=== PATIENT | male | born 1990 | race Two or more races ===

== ENCOUNTER 2023-12-14 00:49 | Inpatient (IN) | payer OTHER ==
[2023-12-14] MEDS ORDERED: NALOXONE HCL 0.4 MG/ML VIAL IM PRN (01:58)
[2023-12-14] MEDS ORDERED: ONDANSETRON *ODT* 4 MG TABLET SL PRN (01:58)
[2023-12-14] MEDS ORDERED: LOPERAMIDE HCL 2 MG CAPSULE PO PRN (01:58)
[2023-12-14] MEDS ORDERED: BENZOCAINE/MENTHOL (CHLORASEPTIC ) LOZENGE MM PRN (01:58)
[2023-12-14] MEDS ORDERED: NALOXONE (NARCAN) HCL 4 MG/0.1 ML SPRAY NS PRN (01:58)
[2023-12-14] MEDS ORDERED: BISMUTH SUBSALICYLATE 524 MG/30 ML PO PRN (01:58)
[2023-12-14] MEDS ORDERED: MAGNESIUM HYDROX 2400MG/30ML ORAL SUSPENSION 30 ML CUP PO PRN (01:58)
[2023-12-14] MEDS ORDERED: ACETAMINOPHEN 325 MG TABLET (FP) PO PRN (01:58)
[2023-12-14] MEDS ORDERED: POLYETHYLENE GLYCOL (HEALTHYLAX) 3350 17 GM PACKET PO PRN (01:58)
[2023-12-14] MEDS ORDERED: guaiFENesin 600 MG TABLET.ER (FP) PO PRN (01:58)
[2023-12-14] MEDS ORDERED: IBUPROFEN 400 MG TABLET (FP) PO PRN (01:58)
[2023-12-14] MEDS ORDERED: BENZONATATE 200 MG CAPSULE PO PRN (01:58)
[2023-12-14] MEDS ORDERED: MAG HYDROX/AL HYDROX/SIMETH 30 ML UNIT-DOSE CUP PO PRN (01:58)
[2023-12-14] MEDS ORDERED: DICYCLOMINE HCL 10 MG CAPSULE PO PRN (01:58)
[2023-12-14 02:51] VITALS: BMI 29.1
[2023-12-14] MEDS: methaDONE HCL 10 MG TABLET (FOR DETOX USE ONLY) PO ONE (03:02)
[2023-12-14] MEDS: NICOTINE 21 MG/24 HOURS TOPICAL PATCH TD SCH (09:33)
[2023-12-14] MEDS: PRENATAL VITAMINS W/ FOLIC ACID TABLET (FP) PO SCH (09:33)
[2023-12-14] MEDS: methaDONE HCL 10 MG TABLET PO ONE ×2 (15:16→15:22)
[2023-12-14] MEDS ORDERED: methaDONE HCL 10 MG TABLET PO PRN (17:00)
[2023-12-14] MEDS: cloNIDine HCL 0.1 MG TABLET PO SCH (17:15)
[2023-12-14] MEDS: THIAMINE 100 MG TABLET PO SCH (22:32)
[2023-12-14] MEDS: MELATONIN 5 MG TABLETS PO SCH (22:32)
[2023-12-15] MEDS: methaDONE 40 MG, methaDONE 10 MG PO ONE (09:35)
[2023-12-15] MEDS: hydrOXYzine PAMOATE 25 MG CAPSULE (FP) PO PRN (22:08)
[2023-12-16] MEDS ORDERED: cloNIDine HCL 0.1 MG TABLET PO PRN
[2023-12-16] MEDS ORDERED: methaDONE HCL 10 MG TABLET (FOR DETOX USE ONLY) PO ONE (10:00)
[2023-12-16] MEDS: methaDONE 40 MG, methaDONE 20 MG PO ONE (10:04)
[2023-12-16 11:51] LABS: HEMATOCRIT 36.9 % (35.4-49); HEMOGLOBIN 12.5 GM/dL (11.7-16.9); MCH 30.6 pg (25.7-33.7); MCHC 33.8 g/dl (32.0-35.9); MEAN CELL VOLUME 90.6 fl (80-96); MEAN PLT VOLUME 7.7 fl (7.5-11.1); PLATELET COUNT 273 10^3/uL (134-434); RBC 4.07 M/mm3 (4.00-5.60); RDW 15.4 % (11.9-15.9); WHITE BLOOD COUNT 6.4 K/mm3 (4.0-10.0)
[2023-12-16 11:55] LABS: POTASSIUM 4.2 mmol/L (3.5-5.1)
[2023-12-16 12:03] LABS: ALBUMIN 3.6 g/dl (3.4-5.0); BLOOD UREA NITROGEN 11.5 mg/dL (7-18)
[2023-12-16 12:04] LABS: BILIRUBIN,TOTAL 0.4 mg/dL (0.2-1); TOT PROT 6.8 g/dl (6.4-8.2)
[2023-12-16 12:06] LABS: CREATININE 0.8 mg/dL (0.55-1.3)
[2023-12-16] MEDS: cloNIDine HCL 0.1 MG TABLET PO PRN (13:05)
[2023-12-16] MEDS ORDERED: SIMETHICONE 80 MG TAB.CHEW (FP) PO PRN (13:27)
[2023-12-16] MEDS: METHOCARBAMOL 500 MG TABLET PO PRN (22:19)
[2023-12-17] MEDS: IBUPROFEN 600 MG TABLET (FP) PO PRN (01:41)
[2023-12-17] MEDS: methaDONE 40 MG, methaDONE 30 MG PO ONE (09:58)
[2023-12-17] MEDS: NICOTINE POLACRILEX 2 MG GUM BUC PRN (16:34)
[2023-12-18] MEDS ORDERED: methaDONE HCL 10 MG TABLET (FOR DETOX USE ONLY) PO ONE (10:00)
[2023-12-18] MEDS: methaDONE HCL 40 MG DISPERSABLE TABLET PO ONE (10:08)
[2023-12-19 08:36] VITALS: BP 132/78; PULSE 61; RESP 18; TEMP 97.8
[2023-12-19] MEDS: methaDONE 80 MG, methaDONE 10 MG PO ONE (09:59)
== END 2023-12-19 11:30 | disposition home or self-care (01) | DRG 773 ==
LOC: YASAS 00:49 → Y6N 02:50
PROVIDERS: ADMIT Allergy & Immunology; ATTEND Psychiatry & Neurology Pain Medicine
PROC: HZ2ZZZZ Detoxification Services for Substance Abuse Treatment (ICD-10-PCS; principal; 2023-12-14)
DX: F11.23 Opioid dependence with withdrawal (principal); F14.20 Cocaine dependence, uncomplicated; F12.10 Cannabis abuse, uncomplicated; F17.210 Nicotine dependence, cigarettes, uncomplicated
CPT/HCPCS: 36415; 80053; 80305; 85027; 86780; 93005; 93010